=== PATIENT | male | born 1985 | race Caucasian/White ===

== ENCOUNTER 2019-02-26 15:28 | Emergency (ER) | payer OTHER ==
[2019-02-26] MEDS ORDERED: TETRACAINE HCL 0.5% 4ML OPTH ONE (15:40)
[2019-02-26] MEDS ORDERED: FLUORESCEIN SODIUM 1 MG/WRAP ONE (15:40)
[2019-02-26] MEDS ORDERED: GENTAMICIN 0.3% OPTH DROP 5ML ONE (16:36)
--- NOTE | 2019-02-26 16:39 | EDPHYS ---
Physician Documentation [facility] Name: Leobardo Chen Age: 33 yrs Sex: Male : 1985 Arrival Date: 02/26/2019 Time: 15:31 Bed 15 Private MD: ED Physician Eren Lawler HPI: 02/26 15:55 This 33 yrs old Male presents to ER via [employer] with complaints of cp Eye Problem. 15:55 The patient is experiencing foreign body sensation, redness, to the left eye, caused by cp an unknown mechanism. Onset: The symptoms/episode began/occurred today. Associated signs and symptoms: Pertinent negatives: dizziness, ear ache, fever, runny nose. Patient does not utilize any form of vision correction. Patient reports he was grinding metal 2 weeks ago but only noticed feeling of foreign body sensation today. Historical: - Allergies: 15:34 No Known Allergies; jl7 - Home Meds: 15:34 None [Active]; jl7 - PMHx: 15:34 None; jl7 - PSHx: 15:34 None; jl7 - Immunization history:: Adult Immunizations unknown. - Social history:: Smoking status: Patient/guardian denies using tobacco. - Ebola Screening: : No symptoms or risks identified at this time. ROS: 16:00 Constitutional: Negative for body aches, chills, fever, poor PO intake. cp 16:00 Eyes: Positive for foreign body sensation, pain, redness, of the iris of left eye, cp Negative for discharge, injury or acute deformity. 16:00 ENT: Negative for drainage from ear(s), ear pain, sore throat, difficulty swallowing, difficulty handling secretions. 16:00 Cardiovascular: Negative for chest pain. 16:00 Respiratory: Negative for cough, shortness of breath, wheezing. 16:00 Abdomen/GI: Negative for abdominal pain, nausea, vomiting, and diarrhea. 16:00 Skin: Negative for rash. 16:00 Neuro: Negative for altered mental status, headache, weakness. 16:00 All other systems are negative. Exam: 16:10 Constitutional: The patient appears in no acute distress, alert, awake, non-toxic, well cp developed, well nourished. 16:10 Head/Face: Normocephalic, atraumatic. cp 16:10 Eyes: Periorbital structures: appear normal, Pupils: equal, round, and reactive to light and accomodation, Extraocular movements: intact throughout, Conjunctiva: redness noted medial aspect left eye. Corneas: foreign body, on the left, at 7 o'clock, appears as small metal sliver, Anterior chamber: normal, Lids and lashes: appear normal, bilaterally, Examination of the other eye reveals no obvious gross abnormality. 16:10 ENT: External ear(s): are unremarkable, Nose: is normal, Mouth: Lips: moist, Oral mucosa: pink and intact, moist, Posterior pharynx: is normal, airway is patent. 16:10 Neck: ROM/movement: is normal, is supple, without pain, no range of motions limitations, no nuchal rigidity. 16:10 Chest/axilla: Inspection: normal. 16:10 Cardiovascular: Rate: bradycardic. 16:10 Respiratory: the patient does not display signs of respiratory distress, Respirations: normal, no use of accessory muscles, no retractions, no splinting, labored breathing, is not present. 16:10 Skin: no rash present. Vital Signs: 15:34 BP 109 / 68; Pulse 50; Resp 16 S; Temp 98.2(O); Pulse Ox 100% on R/A; Pain 5/10; jl7 Visual Acuity: 16:27 Left Eye Visual acuity 20/50, ; Right Eye Visual acuity 20/40, ; Without Lenses; mh5 Procedures: 16:23 Foreign Body Removal: a metal shaving, from the left eye, cornea without use of slit cp lamp by using a cotton-tipped swab, The patient tolerated the removal well. MDM: 15:48 Patient medically screened. cp 16:00 Differential diagnosis: Corneal abrasion of left eye. Foreign body in left eye. cp Infectious conjunctivitis in left eye. 16:35 Data reviewed: vital signs, nurses notes, and as a result, I will discharge patient. cp 16:35 Counseling: I had a detailed discussion with the patient and/or guardian regarding: the cp historical points, exam findings, and any diagnostic results supporting the discharge/admit diagnosis, the need for outpatient follow up, an opthalmologist, to return to the emergency department if symptoms worsen or persist or if there are any questions or concerns that arise at home. Response to treatment: the patient's symptoms have markedly improved after treatment, and as a result, I will discharge patient. 02/26 15:49 Order name: Visual Acuity; Complete Time: 16:33 cp Administered Medications: 16:39 Drug: Gentamicin Drops 0.3 % 1 drops Route: Ophthalmic; Site: left eye; jl7 Disposition: 17:00 Chart complete. cp 19:03 Co-signature as Attending Physician, Eren Lawler MD. rn Disposition: 02/26/19 16:36 Discharged to Home. Impression: Foreign body in cornea, left eye. - Condition is Stable. - Discharge Instructions: Corneal Abrasion, Eye Foreign Body. - Prescriptions for Gentamicin 0.3 % Ophthalmic Drops - instill 1 drop by OPHTHALMIC route every 4 hours for 7 days; 1 bottle. - Medication Reconciliation Form, Thank You Letter, Antibiotic Education, Prescription Opioid Use form. - Follow up: Jose G Shelley MD; When: 2 - 3 days; Reason: Recheck today's complaints. - Problem is new. - Symptoms have improved. Signatures: Eren Lawler MD MD rn Branden Gonzalez PA PA cp Leal, Jahala, RN RN jl7 Corrections: (The following items were deleted from the chart) 16:38 16:36 02/26/2019 16:36 Discharged to Home. Impression: Removal foreign body from left cp cornea. Condition is Stable. Forms are Medication Reconciliation Form, Thank You Letter, Antibiotic Education, Prescription Opioid Use. Follow up: Jose G Shelley; When: 2 - 3 days; Reason: Recheck today's complaints. Problem is new. Symptoms have improved. 16:46 16:38 02/26/2019 16:36 Discharged to Home. Impression: Foreign body in cornea, left jl7 eye. Condition is Stable. Forms are Medication Reconciliation Form, Thank You Letter, Antibiotic Education, Prescription Opioid Use. Follow up: Jose G Shelley; When: 2 - 3 days; Reason: Recheck today's complaints. Problem is new. Symptoms have improved. cp
--- NOTE | 2019-02-26 16:39 | ER ---
Nurse's Notes [facility] Name: Leobardo Chen Age: 33 yrs Sex: Male : 1985 Arrival Date: 02/26/2019 Time: 15:31 Bed 15 Private MD: Diagnosis: Foreign body in cornea, left eye Presentation: 02/26 15:32 Presenting complaint: Patient states: "I feel something in my left eye and see a black jl7 spot in the color part of it.". Transition of care: patient was not received from another setting of care. Onset of symptoms was February 23, 2019. Risk Assessment: Do you want to hurt yourself or someone else? Patient reports no desire to harm self or others. Initial Sepsis Screen: Does the patient meet any 2 criteria? No. Patient's initial sepsis screen is negative. Does the patient have a suspected source of infection? No. Patient's initial sepsis screen is negative. Care prior to arrival: None. 15:32 Method Of Arrival: [employer] Enforcement: [place] [employer] jl7 15:32 Acuity: KRISHNA 4 jl7 Triage Assessment: 15:34 General: Appears in no apparent distress. uncomfortable, Behavior is calm, cooperative, jl7 appropriate for age. Pain: Complains of pain in left eye Pain currently is 5 out of 10 on a pain scale. EENT: Eyes black spec noted in color part of left eye. Sclera/Cornea are reddened in left eye Denies blurred vision. Neuro: Level of Consciousness is awake, alert, obeys commands, Oriented to person, place, time, situation. Cardiovascular: Patient's skin is warm and dry. Respiratory: Airway is patent Respiratory effort is even, unlabored, Respiratory pattern is regular, symmetrical. GI: No signs and/or symptoms were reported involving the gastrointestinal system. : No signs and/or symptoms were reported regarding the genitourinary system. Derm: Skin is pink, warm \\T\\ dry. Musculoskeletal: No signs and/or symptoms reported regarding the musculoskeletal system. Historical: - Allergies: 15:34 No Known Allergies; jl7 - Home Meds: 15:34 None [Active]; jl7 - PMHx: 15:34 None; jl7 - PSHx: 15:34 None; jl7 - Immunization history:: Adult Immunizations unknown. - Social history:: Smoking status: Patient/guardian denies using tobacco. - Ebola Screening: : No symptoms or risks identified at this time. Screenin:30 Abuse screen: Denies threats or abuse. Denies injuries from another. Nutritional jl7 screening: No deficits noted. Tuberculosis screening: No symptoms or risk factors identified. Fall Risk None identified. Assessment: 15:30 General: See triage assessment. jl7 16:30 Reassessment: Patient is alert, oriented x 3, equal unlabored respirations, skin jl7 warm/dry/pink. Patient states feeling better. Patient states symptoms have improved. Vital Signs: 15:34 BP 109 / 68; Pulse 50; Resp 16 S; Temp 98.2(O); Pulse Ox 100% on R/A; Pain 5/10; jl7 Visual Acuity: 16:27 Left Eye Visual acuity 20/50, ; Right Eye Visual acuity 20/40, ; Without Lenses; 5 ED Course: 15:30 Patient has correct armband on for positive identification. Bed in low position. Call jl7 light in reach. Side rails up X 1. Security at bedside. Pulse ox on. NIBP on. 15:31 Patient arrived in ED. jl7 15:33 Triage completed. jl7 15:34 Arm band placed on right wrist. jl7 15:48 Branden Gonzalez PA is PHCP. cp 15:48 Eren Lawler MD is Attending Physician. cp 16:14 Edwin Berman RN is Primary Nurse. jl7 16:28 Jose G Shelley MD is Referral Physician. cp 16:44 No provider procedures requiring assistance completed. Patient did not have IV access jl7 during this emergency room visit. Administered Medications: 16:39 Drug: Gentamicin Drops 0.3 % 1 drops Route: Ophthalmic; Site: left eye; jl7 Outcome: 16:36 Discharge ordered by MD. cp 16:44 Discharged to [employer] Enforcement jl7 16:44 Condition: stable 16:44 Discharge instructions given to patient, police, Instructed on discharge instructions, follow up and referral plans. medication usage, Demonstrated understanding of instructions, follow-up care, medications, Prescriptions given X 1. 16:46 Patient left the ED. jl7 Signatures: Branden Gonzalez PA PA cp Martinez, [facility] Edwin Berman, WILDER RN jl7
[2019-02-26 17:16] VITALS: BP 109/68; TEMP 98.2; O2SAT 100
== END 2019-02-26 16:46 | disposition home or self-care (01) ==
LOC: ER 15:28
PROC: 08C9XZZ Extirpation of Matter from Left Cornea, External Approach (ICD-10-PCS; principal; 2019-02-26)
DX: T15.02XA Foreign body in cornea, left eye, initial encounter (principal); X58.XXXA Exposure to other specified factors, initial encounter; Y93.89 Activity, other specified; Y92.9 Unspecified place or not applicable
CPT/HCPCS: 99284